=== PATIENT | female | born 1975 | race Caucasian/White ===

== ENCOUNTER 2019-03-12 16:47 | Outpatient (CLI) | payer OTHER ==
[~2019-03-12 16:47] MED LIST: BUDE3CAP2 PO; MERC50TA17 PO
== END 2019-03-12 23:59 | disposition home or self-care (01) ==
LOC: CFH 16:47
PROVIDERS: ATTEND Neurological Surgery
DX: M47.896 Other spondylosis, lumbar region (principal)
CPT/HCPCS: 72110